=== PATIENT | male | born 1965 | race Caucasian/White ===

== ENCOUNTER 2024-03-05 11:48 | Inpatient (IN) | payer OTHER, SELFPAY ==
[2024-03-05] VITALS (9 sets, daily range): BP systolic 107–134; BP diastolic 64–87; PULSE 105–122; RESP 18–19; TEMP 36.9–38.1; O2SAT 95–99; BMI 31.3; BMI 30.9
--- NOTE | ~2024-03-05 | CT_ITS ---
EXAMINATION: CT ABDOMEN AND PELVIS WITHOUT CONTRAST CLINICAL INFORMATION: Right-sided abdominal pain, difficulty urinating. COMPARISON: None available. TECHNIQUE: Multidetector volumetric imaging was performed from the superior aspect of the liver through the pubic symphysis. Sagittal and coronal reformatted images were obtained on the technologist's workstation. This CT examination was performed using dose optimization techniques as appropriate, variously including the following: *Automated exposure control *Adjustment of mA and/or kV according to patient size (this includes techniques or standardized protocols for targeted exams where dose is matched to indication/reason for exam; i.e. extremities or head) *Use of iterative reconstruction technique DLP: 650 cc mGy-cm FINDINGS: The lack of intravenous contrast limits evaluation of the solid visceral organs including the liver, spleen, pancreas, and kidneys. LUNG BASES: Few solid pulmonary nodules bilaterally measuring up to 6 mm, for example in the right middle lobe image 24 and left upper lobe/lingula image 97, series 4. No focal consolidation or pleural effusion. Mild bibasilar subsegmental atelectasis. LIVER, GALLBLADDER, AND BILIARY TREE: The liver is normal in size, morphology and attenuation. There are multiple simple appearing cysts as well as several additional too small to characterize hypodensities scattered in the liver, the latter statistically favoring to represent cysts or hemangiomas. No evidence of calcified gallbladder calculi. No significant pericholecystic inflammatory changes. PANCREAS: Unremarkable. SPLEEN: Unremarkable. ADRENAL GLANDS: Less than 2 cm nodularities in the left adrenal gland measuring less than 10 Hounsfield units most suggestive of adenomas, for which no imaging follow-up is recommended. KIDNEYS AND URETERS: No nephrolithiasis or hydronephrosis. Simple appearing partially exophytic cortical cyst in the upper left kidney measuring 1.9 cm, for which no imaging follow-up is recommended. A few additional too small to characterize left-sided peripelvic hypodensities, favoring to represent simple cysts for which no imaging follow-up is recommended. No perinephric fat stranding. BLADDER: Mild diffuse urinary bladder wall thickening. GASTROINTESTINAL TRACT: The stomach and the small bowel are nondilated. Normal appendix. Mild colonic diverticulosis without significant pericolonic inflammatory changes. No evidence of bowel obstruction. ABDOMINAL WALL: No significant hernia is appreciated. LYMPH NODES: Scattered slightly enlarged mesenteric lymph nodes are seen more noticeable in the left upper abdomen measuring up to 1.1 cm in short axis. Mildly prominent right lower periesophageal lymph node measuring 0.9 cm. VASCULAR: Normal caliber abdominal aorta. PELVIC VISCERA: There is a 1.8 cm low-density observation in the prostate base protruding into the bladder (3:89). The prostate gland is enlarged. There is faint stranding around the bladder, prostate and seminal vesicles. OSSEOUS STRUCTURES: No acute or aggressive appearing osseous findings. Degenerative changes of the spine. CT/CT abdomen pelvis wo IV con IMPRESSION: 1. There is trace stranding around the urinary bladder, prostate and seminal vesicles with a 1.8 cm low density observation in the prostatic base; the latter could represent a prostatic abscess or cyst, and the fat stranding could be related with an urinary or prostatic infection. Recommend clinical correlation. 2. There is mild diffuse urinary bladder wall thickening which could be seen in the context of outlet obstruction in view of an enlarged prostate versus cystitis. Correlate clinically. 3. Nonspecific scattered mildly enlarged mesenteric lymph nodes of uncertain significance, these could be seen with mesenteric adenitis or enteritis. 4. Nonspecific mildly prominent right lower paraesophageal lymph node. Recommend attention on follow-up in future examinations. Incidentally noted a few up to 6 mm solid bilateral pulmonary nodules. According to the UPDATED 2017 Fleischner Society recommendations, the advised follow-up imaging for multiple solid nodules measuring up to 6-8 mm is follow-up CT at 3 to 6 months. Fleischner guidelines were followed.
--- NOTE | 2024-03-05 11:56 | ECG_ITS ---
Test Reason : DIZZINESS Blood Pressure : / mmHG Vent. Rate : 109 BPM Atrial Rate : 109 BPM P-R Int : 164 ms QRS Dur : 084 ms QT Int : 304 ms P-R-T Axes : 046 001 -02 degrees QTc Int : 409 ms Sinus tachycardia Otherwise normal ECG No previous ECGs available Referred By: Charlie Arreola Electronically Signed By:Chao Carey
--- NOTE | 2024-03-05 11:57 | ED.GENADULT ---
HPI - General Adult General Chief complaint: Abdominal Pain Stated complaint: dizzy, abd pain, near syncopal episode Time Seen by Provider: 03/05/24 12:31 Source: patient, RN notes reviewed and old records reviewed Mode of arrival: ambulatory History of Present Illness ED Provider: Micheline Cruz PA-C HPI narrative: 58-year-old male with no significant past medical history presenting to the ED complaining of fever T-max 100.8 degrees, chills, lightheadedness, & penile discharge since last night. Also reports bilateral low back pain. Admits to taking ibuprofen around 11:00AM. Denies headache, nausea, vomiting, abdominal pain, flank pain, dysuria/hematuria, lesions. Admits to not drinking enough water Related Data Allergies Allergy/AdvReac Type Severity Reaction Status Date / Time No Known Allergies Allergy Verified 03/05/24 12:00 Review of Systems Review of Systems: Constitutional: + Fever, + Chills ENT/Mouth: No Ear Pain, No Nasal Congestion, No sore throat, No Rhinorrhea, No Swallowing Difficulty Cardiovascular: No Chest Pain, No SOB Respiratory: No Cough, No Sputum, No Wheezing Gastrointestinal: No Nausea, No Vomiting, No Diarrhea, No Constipation, No Abdominal pain Genitourinary: +penile discharge, No Dysuria, No Urinary Frequency, No Hematuria, No Urinary Incontinence/retention, No Urgency, No Flank Pain Musculoskeletal: +back pain, No Myalgias, No Joint Swelling Skin: No Skin Lesions, No rash Neuro: No Weakness Yes all other systems are reviewed and are negative Constitutional: Constitutional: Reports as per [facility] Past Medical History Attestation statement: The following information was validated with the patient. Source: old records reviewed Social History Social History Advance Directives: No Advance Directives Information Provided: Yes Do you have a plan to hurt others: No Plan Physical Exam ED Vital Signs: Vital Signs - 24 hr 03/05/24 11:56 03/05/24 12:57 03/05/24 13:46 Temperature 100.6 F H 98.6 F 99.4 F Pulse Rate 122 H 108 H Respiratory Rate 18 19 Blood Pressure 107/87 122/73 Pulse Oximetry 96 95 Oxygen Delivery Method Room Air Room Air BMI result Body Mass Index 31.3 Const General: cooperative, healthy appearing and no acute distress Orientation/consciousness: patient oriented x3 Limitations: no limitations HENMT Head: Yes normal to inspection and Yes atraumatic Ears: hearing grossly normal bilaterally General nose exam: Normal external nose present Face and sinus: Yes normal facial exam Eyes General: appearance normal, both eyes and all related structures EOM: EOMs intact bilaterally Neck Neck: Yes normal visual inspection and Yes no meningeal signs Resp Effort & Inspection: normal respiratory effort and no respiratory distress Auscultation: clear to auscultation bilaterally, no crackles and no wheezes Cardio Rate: regular rate Heart sounds: S1 normal heart sound present and S2 normal heart sound present GI Inspection: Yes normal to inspection Palpation (GI): Soft to palpation, nontender, no guarding and not rigid General: Yes no CVA tenderness Back/Spine/Pelvis Back: no CVA tenderness Skin Rashes: no rashes Wounds: no wounds Neuro General: patient oriented x3, tone normal and no meningeal signs Cranial nerves: Yes CN's II-XII intact bilaterally Gait exam (Neuro): Normal gait present Extrem General: Yes normal to inspection Course Course Course Narrative: This is an RME done by PK Arreola: Additional HPI, ROS, PE not included below will be deferred to primary provider. 58 year old male no pmhx presents w/ fevers, light headedness (almost passed out [employer]) , foul smelling urine, b/l lower back pain and not peeing as much as usual . 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 Reports fever 100.8 F --> took 2 ibuprofen. Feels unwell. Denies PC, sob, headache, vision changes, weakness. Appearance: Alert.? Oriented X3.? No acute cardiopulmonary distress distress.? Head: Normocephalic, atraumatic, no step-offs or deformities Neck: Normal inspection.? Neck supple.? CVS: Pulses normal.? Respiratory: No respiratory distress.? Abdomen: Soft and nontender.? Skin: ? Normal skin color. Extremities: 5/5 strength to bilateral upper and lower extremities Neuro: Oriented X 3.? No motor deficit.? No sensory deficit. CT abdomen pelvis wo IV con IMPRESSION: 1. There is trace stranding around the urinary bladder, prostate and seminal vesicles with a 1.8 cm low density observation in the prostatic base; the latter could represent a prostatic abscess or cyst, and the fat stranding could be related with an urinary or prostatic infection. Recommend clinical correlation. 2. There is mild diffuse urinary bladder wall thickening which could be seen in the context of outlet obstruction in view of an enlarged prostate versus cystitis. Correlate clinically. 3. Nonspecific scattered mildly enlarged mesenteric lymph nodes of uncertain significance, these could be seen with mesenteric adenitis or enteritis. 4. Nonspecific mildly prominent right lower paraesophageal lymph node. Recommend attention on follow-up in future examinations. Incidentally noted a few up to 6 mm solid bilateral pulmonary nodules. According to the UPDATED 2017 Fleischner Society recommendations, the advised follow-up imaging for multiple solid nodules measuring up to 6-8 mm is follow-up CT at 3 to 6 months. Fleischner guidelines were followed. > results discussed with patient. Consulted Urology, Dr. Moralez who recommended IV antibiotics, admission to hospitalist, 8 mg of doxazosin & to avoid any catheter placement unless patient is in retention, suspected prostate abscess. -1418--leukocytosis 12.1. Total bilirubin mildly elevated 1.4. CRP 5.83. Lactic acid WNL. -UA infected >> will admit to hospitalist Medications Administered Generic Name Dose Route Start Last Admin Trade Name Freq PRN Reason Stop Dose Admin Levofloxacin 500 mg in 100 mls @ 100 mls/hr 03/05/24 13:32 03/05/24 13:46 Levaquin IV 03/05/24 14:31 100 mls/hr ONCE ONE Administration Discontinued Medications Generic Name Dose Route Start Last Admin Trade Name Freq PRN Reason Stop Dose Admin Acetaminophen 650 mg 03/05/24 12:06 03/05/24 12:33 Acetaminophen 325 Mg Tablet PO 03/05/24 12:07 650 mg ONCE ONE Administration Sodium Chloride 1,000 mls @ 999 mls/hr 03/05/24 12:00 03/05/24 13:47 Ns IV 03/05/24 13:00 Infused .Q1H1M SRAVANI Infusion Ceftriaxone Sodium 1 gm/ 50 mls @ 100 mls/hr 03/05/24 12:07 03/05/24 13:16 Sodium Chloride IV 03/05/24 12:36 Infused ONCE ONE Infusion Medical Decision Making Medical Decision Making MDM Narrative: 58-year-old male with no significant past medical history presenting to the ED complaining of fever T-max 100.8 degrees, chills, lightheadedness, & penile discharge since last night. Also reports bilateral low back pain. On exam febrile 100.6, tachycardic likely from fever, NAD/nontoxic appearing, abdomen soft/nontender. Concern for STI vs UTI vs renal stone vs pyelo. Lower suspicion for appendicitis/diverticulitis Plan: Labs, UA, lactic/blood cultures, CT AP and IV Rocephin ordered in triage. Anticipate admission Please refer to course for remaining clinical decision making, interpretation of labs/imaging results, and discussions with consultants and/or family members. Differential Diagnosis Differential Diagnoses: The differential diagnosis associated with the presentation includes As above Admission/Observation Consideration of admission/observation: Escalation of care including admission/observation considered Consult Healthcare Provider Management of the patient was discussed with: Hospitalist (Dr. Gross) and Learning Coordinator (Urology, Dr. Moralez) Lab Data MDM Lab Attestation statement: I reviewed the patient's lab results. 03/05/24 12:28 03/05/24 12:28 Labs: Lab Results 03/05/24 03/05/24 03/05/24 Range/Units 12:28 12:29 12:31 WBC 12.1 H (4.8-10.8) X10*3/uL RBC 4.45 L (4.60-5.80) X10*6/uL Hgb 14.2 (14.0-18.0) g/dl Hct 40.2 L (42.0-52.0) % MCV 90.3 (80.0-98.0) fL MCH 31.9 (27.0-33.0) pg MCHC 35.3 (31.0-36.0) g/dl RDW 11.9 (11.0-16.0) % Plt Count 110 L (160-400) X10*3/uL MPV 10.6 (9.4-12.4) fL Immature Gran % (Auto) Cancelled Neut % (Auto) Cancelled Lymph % (Auto) Cancelled [place] % (Auto) Cancelled Eos % (Auto) Cancelled Baso % (Auto) Cancelled Lymph # (Auto) Cancelled [place] # (Auto) Cancelled Eos # (Auto) Cancelled Baso # (Auto) Cancelled Abs Immat Gran (auto) Cancelled Absolute Neuts (auto) Cancelled Absolute Nucleated RBC 0.000 (0.0-0.012) X10*3/uL Nucleated RBC % (auto) 0.0 (0.0-0.2) /100WBC Neutrophils % (Manual) 89 H (45-73) % Band Neutrophils % 9 H (3-5) % Monocytes % (Manual) 2 (2-11) % Abs Neuts (Manual) 11.9 H (2.0-8.3) X10*3/uL Monocytes # (Manual) 0.2 (0.1-1.2) X10*3/uL Toxic Vacuolation PRESENT Platelet Estimate DECREASED (NORMAL) Plt Morphology Comment NORMAL RBC Morphology NORMAL Hold Blue Top SEE NOTE Sodium 137 (135-145) mmol/L Potassium 3.3 (3.3-5.1) mmol/L Chloride 106 (96-108) mmol/L Carbon Dioxide 25 (22-29) mmol/L Anion Gap 9 L (12-20) BUN 18 H (9-16) mg/dL Creatinine 0.99 (0.5-1.4) mg/dL Estim Creat Clear Calc 106.2 Estimated GFR > 60 Random Glucose 114 (60-115) mg/dL Lactic Acid 1.6 (0.5-2.0) mmol/L Calcium 8.9 (8.4-10.2) mg/dL Magnesium 1.6 (1.6-2.6) mg/dL Total Bilirubin 1.4 H (0.0-1.0) mg/dL AST 16 (5-37) U/L ALT 23 (0-40) U/L Alkaline Phosphatase 56 (39-117) U/L Total Creatine Kinase 123 (38-174) U/L Troponin I High Sens < 2.7 (<3.5-35.0) ng/L C-Reactive Protein 5.83 H (< or = 0.50) mg/dL Total Protein 6.9 (6.5-8.0) g/dL Albumin 4.1 (3.5-5.0) g/dL Lipase 31 (8-78) U/L Urine Color Urine Appearance Urine pH (5.0-9.0) Ur Specific [place] (1.005-1.025) Urine Protein (Neg-Trace) mg/dL Urine Glucose (UA) (Negative) mg/dL Urine Ketones (Negative) mg/dL Urine Blood (Negative) Urine Nitrite (Negative) Ur Leukocyte Esterase (Negative) Urine RBC (0-2) /HPF Urine WBC (0-5) /HPF Ur Squamous Epith Cells (0-2) /HPF Urine Bacteria (None Seen) Hyaline Casts (0-2) /LPF Influenza Type A (PCR) NEGATIVE (Negative) Influenza Type B (PCR) NEGATIVE (Negative) RSV RNA Qual (PCR) NEGATIVE (Negative) SARS-CoV-2 RNA (RT-PCR) NEGATIVE (Negative) 03/05/24 03/05/24 Range/Units 13:07 13:28 WBC (4.8-10.8) X10*3/uL RBC (4.60-5.80) X10*6/uL Hgb (14.0-18.0) g/dl Hct (42.0-52.0) % MCV (80.0-98.0) fL MCH (27.0-33.0) pg MCHC (31.0-36.0) g/dl RDW (11.0-16.0) % Plt Count (160-400) X10*3/uL MPV (9.4-12.4) fL Immature Gran % (Auto) Neut % (Auto) Lymph % (Auto) [place] % (Auto) Eos % (Auto) Baso % (Auto) Lymph # (Auto) [place] # (Auto) Eos # (Auto) Baso # (Auto) Abs Immat Gran (auto) Absolute Neuts (auto) Absolute Nucleated RBC (0.0-0.012) X10*3/uL Nucleated RBC % (auto) (0.0-0.2) /100WBC Neutrophils % (Manual) (45-73) % Band Neutrophils % (3-5) % Monocytes % (Manual) (2-11) % Abs Neuts (Manual) (2.0-8.3) X10*3/uL Monocytes # (Manual) (0.1-1.2) X10*3/uL Toxic Vacuolation Platelet Estimate (NORMAL) Plt Morphology Comment RBC Morphology Hold Blue Top Sodium (135-145) mmol/L Potassium (3.3-5.1) mmol/L Chloride (96-108) mmol/L Carbon Dioxide (22-29) mmol/L Anion Gap (12-20) BUN (9-16) mg/dL Creatinine (0.5-1.4) mg/dL Estim Creat Clear Calc Estimated GFR Random Glucose (60-115) mg/dL Lactic Acid 0.9 (0.5-2.0) mmol/L Calcium (8.4-10.2) mg/dL Magnesium (1.6-2.6) mg/dL Total Bilirubin (0.0-1.0) mg/dL AST (5-37) U/L ALT (0-40) U/L Alkaline Phosphatase (39-117) U/L Total Creatine Kinase (38-174) U/L Troponin I High Sens (<3.5-35.0) ng/L C-Reactive Protein (< or = 0.50) mg/dL Total Protein (6.5-8.0) g/dL Albumin (3.5-5.0) g/dL Lipase (8-78) U/L Urine Color Yellow Urine Appearance Clear Urine pH 7.0 (5.0-9.0) Ur Specific [place] 1.010 (1.005-1.025) Urine Protein Negative (Neg-Trace) mg/dL Urine Glucose (UA) Negative (Negative) mg/dL Urine Ketones Negative (Negative) mg/dL Urine Blood Trace H (Negative) Urine Nitrite Positive H (Negative) Ur Leukocyte Esterase Large (3+) H (Negative) Urine RBC 0-2 (0-2) /HPF Urine WBC 21-50 H (0-5) /HPF Ur Squamous Epith Cells 0-2 (0-2) /HPF Urine Bacteria 1+ (None Seen) Hyaline Casts 0-2 (0-2) /LPF Influenza Type A (PCR) (Negative) Influenza Type B (PCR) (Negative) RSV RNA Qual (PCR) (Negative) SARS-CoV-2 RNA (RT-PCR) (Negative) Independent Interpretation I performed an independent interpretation of an: CT Scan Radiology Impression Discussion of test interpretation with radiology: I have reviewed the radiologist's reading. Independent Historian Clinical information obtained from an independent historian. History obtained from or confirmed by: Spouse External Record Review External record reviewed: Inpatient record, Office record, Outpatient record, Prior outpatient labs, Prior outpatient radiology, Primary care record and Outside ED record Tests considered The following testing was considered but not selected: As above Prescription Management I considered prescription management with: Pain Medication and Antibiotic Critical Care Time Critical Care Time Critical Care Time: Yes Total Critical Care Time: 40 Attestation: I have personally provided critical care time exclusive of time spent on separately billable procedures. Time includes review of lab data, radiology results, discussion with consultants, and monitoring for potential decompensation. Intervention performed as documented. Discharge Plan Discharge Clinical Impression: Prostate abscess Patient Disposition: Admitted As Inpatient Print Language: Ethiopian
[2024-03-05] MEDS: Acetaminophen 325 MG TABLET 650 MG PO (12:33)
[2024-03-05] MEDS: 0.9 % Sodium Chloride 1,000 ML 999 ML IV ×2 (12:34→14:45)
[2024-03-05 12:41] LABS: Hematocrit 40.2 % (42.0-52.0); Hemoglobin 14.2 g/dl (14.0-18.0); Mean Corpuscular HGB Conc 35.3 g/dl (31.0-36.0); Mean Corpuscular Hemoglobin 31.9 pg (27.0-33.0); Mean Corpuscular Volume 90.3 fL (80.0-98.0); Mean Platelet Volume 10.6 fL (9.4-12.4); Platelet Count 110 X10*3/uL (160-400); Red Blood Count 4.45 X10*6/uL (4.60-5.80); Red Cell Distribution Width 11.9 % (11.0-16.0); White Blood Count 12.1 X10*3/uL (4.8-10.8)
[2024-03-05] MEDS: cefTRIAXone sodium 1 GM in 0.9 % Sodium Chloride 50 ML IV (12:44)
[2024-03-05 12:50] LABS: Lactic Acid 1.6 mmol/L (0.5-2.0)
[2024-03-05 12:54] LABS: Alanine Aminotransferase 23 U/L (0-40); Albumin Level 4.1 g/dL (3.5-5.0); Alkaline Phosphatase 56 U/L (39-117); Anion Gap 9 (12-20); Aspartate Amino Transferase 16 U/L (5-37); Bilirubin Total 1.4 mg/dL (0.0-1.0); Blood Urea Nitrogen 18 mg/dL (9-16); Calcium 8.9 mg/dL (8.4-10.2); Carbon Dioxide 25 mmol/L (22-29); Chloride 106 mmol/L (96-108); Creatinine Clr Calc Pharmacy 106.2; Estimated Glomerular Filt Rate > 60; Glucose Random 114 mg/dL (60-115); Lipase 31 U/L (8-78); Magnesium 1.6 mg/dL (1.6-2.6); Potassium 3.3 mmol/L (3.3-5.1); Sodium 137 mmol/L (135-145); Total Protein 6.9 g/dL (6.5-8.0)
[2024-03-05 13:05] LABS: Band Neutrophils Percent 9 % (3-5); Monocytes Absolute Manual 0.2 X10*3/uL (0.1-1.2); Monocytes Percent Manual 2 % (2-11); Neutrophils Absolute Manual 11.9 X10*3/uL (2.0-8.3); Neutrophils Percent Manual 89 % (45-73)
[2024-03-05 13:06] LABS: Platelet Estimate DECREASED (NORMAL); Platelet Morphology Comment NORMAL; RBC Morphology NORMAL; Toxic Vacuolation PRESENT; Troponin-I High Sensitivity < 2.7 ng/L (<3.5-35.0)
[2024-03-05 13:16] LABS: Influenza A PCR NEGATIVE (Negative); Influenza B PCR NEGATIVE (Negative); Resp Syncy Virus RNA Qual PCR NEGATIVE (Negative); SARS COV2 PCR INHOUSE NEGATIVE (Negative)
[2024-03-05 13:27] LABS: Lactic Acid 0.9 mmol/L (0.5-2.0)
[2024-03-05 13:41] LABS: Appearance Urine Clear; Color Urine Yellow; Glucose Urine UA Negative (Negative); Leukocyte Esterase Urine Large (3+) (Negative); Nitrite Urine Positive (Negative); UMIC TRIGGER UACC YES; Urine Blood Trace (Negative); Urine Ketones Negative (Negative); Urine Protein Negative (Neg-Trace)
[2024-03-05 13:43] LABS: Bacteria Urine 1+ (None Seen); Hyaline Casts Urine 0-2 /LPF (0-2); RBC Urine 0-2 /HPF (0-2); Squamous Epithelial Cell Urine 0-2 /HPF (0-2); UACC Culture Trigger YES; WBC Urine 21-50 /HPF (0-5)
[2024-03-05] MEDS: levoFLOXacin/D5W 500 MG/100 ML PIGGYBACK 100 MG IV (13:46)
[2024-03-05 14:01] LABS: C Reactive Protein 5.83 mg/dL (< or = 0.50)
--- NOTE | 2024-03-05 14:26 | PM.IMHP ---
History of Present Illness Date of Service: 03/05/24 Attending physician on admission: Richie Stringer Chief Complaint: Lightheadedness, weak urinary stream, fevers 58-year-old male without any significant past medical history presented to the ED earlier today for evaluation of lightheadedness, increased urinary frequency with weak urinary stream, and fevers up to 100.8 with associated chills that started last night. He has also had decreased appetite as well as a thick white penile discharge noted last night. Denies any abdominal pain, nausea, vomiting, dysuria, hematuria, diarrhea, cough, shortness of breath, chest pain. No syncope. is present in room during time of exam but both report strict monogamy. No history of STI. Since arrival, has been febrile to 100.6, tachycardic to 122, vital signs otherwise stable. He has a leukocytosis of 12.1 with 9% bandemia. Renal function and electrolyte levels normal. Lactic acid initially 1.6 with repeat 0.9. Total bilirubin 1.4, hepatic function otherwise within normal limits. CRP 5.83. ESR 6. Urinalysis significant for 3+ leukocytes, positive nitrites, trace blood, positive urinary sediment, 1+ bacteria. Gonorrhea and chlamydia PCR both pending. CT abdomen/pelvis shows trace stranding around the urinary bladder, prostate, and seminal vesicles with a 1.8 cm low-density observed in the prostatic base possibly representing prostatic abscess or cyst. There is also diffuse urinary bladder wall thickening and scattered mildly enlarged mesenteric lymph nodes. In the ED, has been given IV ceftriaxone, Levaquin, Tylenol, and 2 L IV NS. Review of Systems Review of Systems: Yes all other systems are reviewed and are negative [facility] Medical History No pertinent past medical history Social History Advance Directives: No Advance Directives Information Provided: Yes Do you have a plan to hurt others: No Plan Meds Allergies Allergy/AdvReac Type Severity Reaction Status Date / Time No Known Allergies Allergy Verified 03/05/24 12:00 Active Medications: Current Medications Levofloxacin (Levaquin) 500 mg in 100 mls @ 100 mls/hr IV ONCE ONE Stop: 03/05/24 14:31 Last Admin: 03/05/24 13:46 Dose: 100 mls/hr Sodium Chloride (Ns) 1,000 mls @ 999 mls/hr IV .Q1H1M SRAVANI Stop: 03/05/24 15:30 Home Medications ?Medication ?Instructions ?Recorded ?Confirmed ?Last Taken ?Type ascorbic acid (vitamin C) 500 mg 500 mg PO DAILY 03/05/24 03/05/24 Unknown History tablet (Vitamin C) biotin 5 mg tablet 5 mg PO DAILY 03/05/24 03/05/24 Unknown History omega 1-hde-dvp-fish oil 1,000 mg 1 cap PO DAILY 03/05/24 03/05/24 Unknown History (120 mg-180 mg) capsule (Fish Oil) sildenafil 100 mg tablet 100 mg PO DAILY PRN intercourse 03/05/24 03/05/24 Unknown History Physical Exam Vital Signs and Narrative: Vital Signs: Last Vital Signs Temp 99.4 F 03/05/24 13:46 Pulse 108 H 03/05/24 12:57 Resp 19 03/05/24 12:57 BP 122/73 03/05/24 12:57 Pulse Ox 95 03/05/24 12:57 O2 Del Method Room Air 03/05/24 12:57 BMI result Body Mass Index 31.3 Constitutional - Awake and Alert, No apparent distress Eyes - PERRLA, EOMI Cardiovascular - S1S2, RRR, No edema Respiratory - Normal lung expansion, Normal respiratory effort, No respiratory distress, CTA bilaterally Gastrointestinal - NT / ND; +BS; No rebound or guarding - No CVA tenderness Extremities - no calf tenderness bilaterally, no swelling Skin - Warm/Dry Neurological - Alert & oriented x3 Psychological - Appropriate affect Results Labs 03/05/24 12:28 03/05/24 12:28 Labs: Laboratory Results - last 24 hr 03/05/24 03/05/24 03/05/24 12:28 12:29 12:31 MCV 90.3 MCH 31.9 MCHC 35.3 RDW 11.9 Plt Count 110 L MPV 10.6 Immature Gran % (Auto) Cancelled Neut % (Auto) Cancelled Lymph % (Auto) Cancelled [place] % (Auto) Cancelled Eos % (Auto) Cancelled Baso % (Auto) Cancelled Lymph # (Auto) Cancelled [place] # (Auto) Cancelled Eos # (Auto) Cancelled Baso # (Auto) Cancelled Abs Immat Gran (auto) Cancelled Absolute Neuts (auto) Cancelled Absolute Nucleated RBC 0.000 Nucleated RBC % (auto) 0.0 Neutrophils % (Manual) 89 H Band Neutrophils % 9 H Monocytes % (Manual) 2 Abs Neuts (Manual) 11.9 H Monocytes # (Manual) 0.2 Toxic Vacuolation PRESENT Platelet Estimate DECREASED Plt Morphology Comment NORMAL RBC Morphology NORMAL Hold Blue Top SEE NOTE Anion Gap 9 L Estim Creat Clear Calc 106.2 Estimated GFR > 60 Random Glucose 114 Lactic Acid 1.6 Calcium 8.9 Magnesium 1.6 Total Bilirubin 1.4 H AST 16 ALT 23 Alkaline Phosphatase 56 Total Creatine Kinase 123 Troponin I High Sens < 2.7 C-Reactive Protein 5.83 H Total Protein 6.9 Albumin 4.1 Lipase 31 Urine Color Urine Appearance Urine pH Ur Specific [place] Urine Protein Urine Glucose (UA) Urine Ketones Urine Blood Urine Nitrite Ur Leukocyte Esterase Urine RBC Urine WBC Ur Squamous Epith Cells Urine Bacteria Hyaline Casts Influenza Type A (PCR) NEGATIVE Influenza Type B (PCR) NEGATIVE RSV RNA Qual (PCR) NEGATIVE SARS-CoV-2 RNA (RT-PCR) NEGATIVE 03/05/24 03/05/24 13:07 13:28 MCV MCH MCHC RDW Plt Count MPV Immature Gran % (Auto) Neut % (Auto) Lymph % (Auto) [place] % (Auto) Eos % (Auto) Baso % (Auto) Lymph # (Auto) [place] # (Auto) Eos # (Auto) Baso # (Auto) Abs Immat Gran (auto) Absolute Neuts (auto) Absolute Nucleated RBC Nucleated RBC % (auto) Neutrophils % (Manual) Band Neutrophils % Monocytes % (Manual) Abs Neuts (Manual) Monocytes # (Manual) Toxic Vacuolation Platelet Estimate Plt Morphology Comment RBC Morphology Hold Blue Top Anion Gap Estim Creat Clear Calc Estimated GFR Random Glucose Lactic Acid 0.9 Calcium Magnesium Total Bilirubin AST ALT Alkaline Phosphatase Total Creatine Kinase Troponin I High Sens C-Reactive Protein Total Protein Albumin Lipase Urine Color Yellow Urine Appearance Clear Urine pH 7.0 Ur Specific [place] 1.010 Urine Protein Negative Urine Glucose (UA) Negative Urine Ketones Negative Urine Blood Trace H Urine Nitrite Positive H Ur Leukocyte Esterase Large (3+) H Urine RBC 0-2 Urine WBC 21-50 H Ur Squamous Epith Cells 0-2 Urine Bacteria 1+ Hyaline Casts 0-2 Influenza Type A (PCR) Influenza Type B (PCR) RSV RNA Qual (PCR) SARS-CoV-2 RNA (RT-PCR) Imaging Radiologist's Impressions: Impressions Abdomen/Pelvis CT 03/05/24 12:20 IMPRESSION: 1. There is trace stranding around the urinary bladder, prostate and seminal vesicles with a 1.8 cm low density observation in the prostatic base; the latter could represent a prostatic abscess or cyst, and the fat stranding could be related with an urinary or prostatic infection. Recommend clinical correlation. 2. There is mild diffuse urinary bladder wall thickening which could be seen in the context of outlet obstruction in view of an enlarged prostate versus cystitis. Correlate clinically. 3. Nonspecific scattered mildly enlarged mesenteric lymph nodes of uncertain significance, these could be seen with mesenteric adenitis or enteritis. 4. Nonspecific mildly prominent right lower paraesophageal lymph node. Recommend attention on follow-up in future examinations. Incidentally noted a few up to 6 mm solid bilateral pulmonary nodules. According to the UPDATED 2017 Fleischner Society recommendations, the advised follow-up imaging for multiple solid nodules measuring up to 6-8 mm is follow-up CT at 3 to 6 months. Fleischner guidelines were followed. Assessment and Plan (1) Prostatitis: Status: Acute (2) Prostate abscess: Status: Acute Plan 58-year-old male without any significant past medical history admitted for prostatitis and prostatic abscess #acute prostatitis and prostatic abscess with sepsis -leukocytosis 12.1, tachycardia. New lactic acidosis or end-organ damage. No severe sepsis -UA with 3+ leukocytes, positive nitrites, trace blood, positive urinary sediment, 1+ bacteria. Gonorrhea and chlamydia PCR pending -CT abdomen/pelvis shows trace stranding around the urinary bladder, prostate, and seminal vesicles with a 1.8 cm low-density observed in the prostatic base possibly representing prostatic abscess or cyst. There is also diffuse urinary bladder wall thickening and scattered mildly enlarged mesenteric lymph nodes. -IV ceftriaxone per Urology (initiated 03/05). We will also empirically cover with docycycline x 7 days (initiated 03/05) -urology consult -follow cbc/cultures #ACute thrombocytopenia -likely in setting of infection but no severe sepsis # acute hyperbilirubinemia -likely in setting of infection, but no severe sepsis dvt prophylaxis- scps, early ambulation full code Patient with acute prostatitis and prostatic abscess with sepsis will require inpatient hospital stay at least 2 midnights for management with IV antibiotics, expert consultation, and close monitoring of hemodynamics to monitor for and prevent decompensation Quality Stroke Does the patient have a stroke diagnosis?: No VTE Prior VTE?: No VTE Risk Level:: Medical - moderate - high VTE Device Contraindication: Treatment Not Indicated VTE Drug Contraindication: N/A - Med Ordered
--- NOTE | 2024-03-05 14:34 | PHA.MEDREC ---
Pharmacy Consult ? Medication Reconciliation Pharmacy has completed the medication reconciliation. spoke with patient to confirm medications.
[2024-03-05 14:56] LABS: Erythrocyte Sedimentation Rate 6 MM/HR (0-15)
[2024-03-05 15:30] LABS: CT PCR NOT DETECTED (Not Detect.); NG PCR NOT DETECTED (Not Detect.)
[2024-03-05] MEDS: Doxazosin Mesylate 2 MG TABLET 8 MG PO (15:56)
[2024-03-05] MEDS: 0.9 % Sodium Chloride Flush 3 ML SYRINGE IVFLUSH (17:15)
[2024-03-05] MEDS: Doxycycline Hyclate 100 MG in 0.9 % Sodium Chloride 250 ML 166.67 MG IV (17:16)
--- NOTE | 2024-03-05 17:38 | MHC.EDTECH ---
Pt changed over and placed in hospital bed. Vital signs taken and tray ordered and pt updated on plan of care.
--- NOTE | 2024-03-05 17:49 | PC.NURSE ---
PT ARRIVES FROM ED , IN NAD. DENIES ANY PAIN, PASSING URINE AT THIS TIME. AFEBRILE, REMAINS SLIGHTLY TACHY LOW 100S. DOXY GTT RUNNING WITH NO ISSUE. HE IS A&OX4, AMBULATES INDEPENDENTLY, STEADILY. WCTM.
[2024-03-05] MEDS: ondansetron HCL 4 MG/2 ML VIAL IVPUSH (18:31)
[2024-03-06 03:18] VITALS: BP 109/64; PULSE 95; RESP 18; TEMP 37; O2SAT 92
[2024-03-06] MEDS: Doxycycline Hyclate 100 MG in 0.9 % Sodium Chloride 250 ML 166.67 MG IV (04:31)
[2024-03-06 06:14] LABS: MANUAL DIFF FLAG NO
[2024-03-06 06:23] LABS: Basophils Percent Auto 0.2 % (0-2); Eosinophils Percent Auto 0.1 % (0-4); Hematocrit 36.3 % (42.0-52.0); Hemoglobin 12.7 g/dl (14.0-18.0); Imm Gran Abs Auto 0.16 X10*3/uL (0.00-0.03); Imm Gran Pct Auto 1.2 % (0.0-0.4); Lymphocytes Absolute Auto 0.7 X10*3/uL (1.2-4.9); Lymphocytes Percent Auto 5.5 % (20-40); Mean Corpuscular Hemoglobin 32.1 pg (27.0-33.0); Mean Corpuscular Volume 91.7 fL (80.0-98.0); Mean Platelet Volume 11.3 fL (9.4-12.4); Monocytes Absolute Auto 0.9 X10*3/uL (0.1-1.2); Monocytes Percent Auto 6.3 % (2-11); Neutrophils Absolute Auto 11.6 x10*3/uL (2.0-8.3); Neutrophils Percent Auto 86.7 % (45-73); Red Blood Count 3.96 X10*6/uL (4.60-5.80); Red Cell Distribution Width 12.1 % (11.0-16.0); White Blood Count 13.4 X10*3/uL (4.8-10.8)
[2024-03-06 06:24] LABS: Platelet Count 81 X10*3/uL (160-400)
[2024-03-06 06:33] LABS: Anion Gap 11 (12-20); Blood Urea Nitrogen 11 mg/dL (9-16); Calcium 8.5 mg/dL (8.4-10.2); Carbon Dioxide 23 mmol/L (22-29); Chloride 108 mmol/L (96-108); Creatinine Clr Calc Pharmacy 124.5; Estimated Glomerular Filt Rate > 60; Glucose Random 162 mg/dL (60-115); Potassium 3.8 mmol/L (3.3-5.1); Sodium 138 mmol/L (135-145)
[2024-03-06 07:31] VITALS: BP 114/68; PULSE 91; RESP 18; TEMP 36.4; O2SAT 94
[2024-03-06] MEDS: 0.9 % Sodium Chloride Flush 3 ML SYRINGE IVFLUSH ×3 (07:51→23:50)
[2024-03-06] MEDS: Doxazosin Mesylate 2 MG TABLET 8 MG PO (07:52)
[2024-03-06] MEDS: Ascorbic Acid 500 MG TABLET PO (07:52)
--- NOTE | 2024-03-06 08:30 | P.PNIM_ITS ---
Subjective Subjective Date of Service: 03/06/24 Interval History: Being followed for fevers lightheadedness and penile discharge admitted with a diagnosis of acute prostatitis and prostatic abscess with sepsis. Patient feeling better this morning complaining of headache, no fevers, no nausea, no vomiting, no urinary symptoms of hematuria or dysuria. Review of Systems All other system reviewed and are negative Physical Exam 2 Vital Signs: Vital Signs: Last Vital Signs Temp 97.5 F 03/06/24 07:31 Pulse 91 03/06/24 07:31 Resp 18 03/06/24 07:31 BP 114/68 03/06/24 07:31 Pulse Ox 94 03/06/24 07:31 O2 Del Method Room Air 03/06/24 07:31 BMI result Body Mass Index 30.9 Const: Other: General patient resting comfortably in no acute distress. Neck is supple no JVD. CVS regular rate rhythm, Respiratory lungs clear to auscultation, no respiratory distress, no wheeze, no rhonchi. Gastrointestinal abdomen soft, non tender, bowel sounds audible, no guarding , no rigidity. Extremities no edema. Neuro non focal Skin no rash Psych appropriate affect Objective Data Active Medications Acetaminophen (Acetaminophen 325 Mg Tablet) 650 mg PO Q6H PRN PRN Reason: Pain, Mild (Pain Scale 1-3), fever or headache Ascorbic Acid (Ascorbic Acid 500 Mg Tablet) 500 mg PO DAILY [facility] Last Admin: 03/06/24 07:52 Dose: 500 mg Documented By: KAMILAH Calcium Carbonate (Calcium Carbonate 750 Mg Tab.Chew) 750 mg PO Q4H PRN PRN Reason: Heartburn Doxazosin Mesylate (Doxazosin Mesylate 2 Mg Tablet) 8 mg PO DAILY [facility]; Protocol Last Admin: 03/06/24 07:52 Dose: 8 mg Documented By: KAMILAH Doxycycline Hyclate 100 mg/ (Sodium Chloride) 250 mls @ 166.67 mls/hr IV Q12H [facility] Last Infusion: 03/06/24 06:13 Dose: Infused Documented By: JESENIA Ceftriaxone Sodium 1 gm/ (Sodium Chloride) 50 mls @ 100 mls/hr IV Q24H [facility] Magnesium Hydroxide (Milk Of Magnesia 30 Ml Oral.Susp) 30 ml PO DAILY PRN PRN Reason: Constipation Melatonin (Melatonin 3 Mg Tablet) 6 mg PO BEDTIME PRN PRN Reason: Insomnia Ondansetron HCl (Ondansetron Hcl 4 Mg/2 Ml Vial) 4 mg IVPUSH Q8H PRN PRN Reason: Nausea and Vomiting Last Admin: 03/05/24 18:31 Dose: 4 mg Documented By: MEERA Sodium Chloride (0.9 % Sodium Chloride Flush 3 Ml Syringe) 3 ml IVFLUSH QSHIFT [facility] Last Admin: 03/06/24 07:51 Dose: 3 ml Documented By: KAMILAH Labs 03/06/24 05:50 03/06/24 05:50 Labs: Laboratory Results - last 24 hr 03/05/24 03/05/24 03/05/24 12:28 12:29 12:31 MCV 90.3 MCH 31.9 MCHC 35.3 RDW 11.9 Plt Count 110 L MPV 10.6 Immature Gran % (Auto) Cancelled Neut % (Auto) Cancelled Lymph % (Auto) Cancelled [place] % (Auto) Cancelled Eos % (Auto) Cancelled Baso % (Auto) Cancelled Lymph # (Auto) Cancelled [place] # (Auto) Cancelled Eos # (Auto) Cancelled Baso # (Auto) Cancelled Abs Immat Gran (auto) Cancelled Absolute Neuts (auto) Cancelled Absolute Nucleated RBC 0.000 Nucleated RBC % (auto) 0.0 Neutrophils % (Manual) 89 H Band Neutrophils % 9 H Monocytes % (Manual) 2 Abs Neuts (Manual) 11.9 H Monocytes # (Manual) 0.2 Toxic Vacuolation PRESENT Platelet Estimate DECREASED Plt Morphology Comment NORMAL RBC Morphology NORMAL ESR 6 Hold Blue Top SEE NOTE Anion Gap 9 L Estim Creat Clear Calc 106.2 Estimated GFR > 60 Random Glucose 114 Lactic Acid 1.6 Calcium 8.9 Magnesium 1.6 Total Bilirubin 1.4 H AST 16 ALT 23 Alkaline Phosphatase 56 Total Creatine Kinase 123 Troponin I High Sens < 2.7 C-Reactive Protein 5.83 H Total Protein 6.9 Albumin 4.1 Lipase 31 Urine Color Urine Appearance Urine pH Ur Specific [place] Urine Protein Urine Glucose (UA) Urine Ketones Urine Blood Urine Nitrite Ur Leukocyte Esterase Urine RBC Urine WBC Ur Squamous Epith Cells Urine Bacteria Hyaline Casts Chlam trachomat DNA PCR Influenza Type A (PCR) NEGATIVE Influenza Type B (PCR) NEGATIVE N.gonorrhoeae DNA (PCR) RSV RNA Qual (PCR) NEGATIVE SARS-CoV-2 RNA (RT-PCR) NEGATIVE 03/05/24 03/05/24 03/06/24 13:07 13:28 05:50 MCV 91.7 MCH 32.1 MCHC 35.0 RDW 12.1 Plt Count 81 L D MPV 11.3 Immature Gran % (Auto) 1.2 H Neut % (Auto) 86.7 H Lymph % (Auto) 5.5 L [place] % (Auto) 6.3 Eos % (Auto) 0.1 Baso % (Auto) 0.2 Lymph # (Auto) 0.7 L [place] # (Auto) 0.9 Eos # (Auto) 0.0 Baso # (Auto) 0.0 Abs Immat Gran (auto) 0.16 H Absolute Neuts (auto) 11.6 H Absolute Nucleated RBC 0.000 Nucleated RBC % (auto) 0.0 Neutrophils % (Manual) Band Neutrophils % Monocytes % (Manual) Abs Neuts (Manual) Monocytes # (Manual) Toxic Vacuolation Platelet Estimate Plt Morphology Comment RBC Morphology ESR Hold Blue Top Anion Gap 11 L Estim Creat Clear Calc 124.5 Estimated GFR > 60 Random Glucose 162 H Lactic Acid 0.9 Calcium 8.5 Magnesium Total Bilirubin AST ALT Alkaline Phosphatase Total Creatine Kinase Troponin I High Sens C-Reactive Protein Total Protein Albumin Lipase Urine Color Yellow Urine Appearance Clear Urine pH 7.0 Ur Specific [place] 1.010 Urine Protein Negative Urine Glucose (UA) Negative Urine Ketones Negative Urine Blood Trace H Urine Nitrite Positive H Ur Leukocyte Esterase Large (3+) H Urine RBC 0-2 Urine WBC 21-50 H Ur Squamous Epith Cells 0-2 Urine Bacteria 1+ Hyaline Casts 0-2 Chlam trachomat DNA PCR NOT DETECTED Influenza Type A (PCR) Influenza Type B (PCR) N.gonorrhoeae DNA (PCR) NOT DETECTED RSV RNA Qual (PCR) SARS-CoV-2 RNA (RT-PCR) Microbiology Microbiology Results: Microbiology 03/05/24 12:29 Blood Culture - Preliminary Blood - Venous Prelim: GNR Gram Stain only 03/05/24 12:44 Blood Culture - Final Blood - Venous 03/05/24 12:14 Blood Culture - Final Blood - Venous Assessment and Plan (1) Prostatitis: Status: Acute (2) Prostate abscess: Status: Acute Plan 58-year-old male without any significant past medical history admitted for prostatitis and prostatic abscess #acute prostatitis and prostatic abscess with sepsis -clinically feeling better, WBC bumped from 12.1-13.4, no fevers, no urinary symptoms, urine and 1/2 blood culture positive for Gram-negative rods -tachycardia improving, normal lactic acid, no end-organ damage, no severe sepsis. -UA with 3+ leukocytes, positive nitrites, trace blood, positive urinary sediment, 1+ bacteria. Gonorrhea and chlamydia PCR negative -CT abdomen/pelvis shows trace stranding around the urinary bladder, prostate, and seminal vesicles with a 1.8 cm low-density observed in the prostatic base possibly representing prostatic abscess or cyst. There is also diffuse urinary bladder wall thickening and scattered mildly enlarged mesenteric lymph nodes. -continue IV ceftriaxone per Urology (initiated 03/05). DC IV doxy -urology consult -follow cbc/cultures #Acute thrombocytopenia -noted to have slight drop in platelet from 110,000 to 81,000 this morning, likely due to chronic alcohol use, due to doxycycline, but not due to severe sepsis, since fever resolved, tachycardia improved, will monitor CBC # acute hyperbilirubinemia -likely chronic with alcohol use disorder or due to infection , but no severe sepsis dvt prophylaxis- scps, early ambulation full code Patient with acute prostatitis and prostatic abscess with sepsis will require inpatient hospitalization for management with IV antibiotics, expert consultation, and close monitoring of hemodynamics to monitor for and prevent decompensation Quality Stroke Does the patient have a stroke diagnosis?: No VTE Prior VTE?: No VTE Risk Level:: Medical - moderate - high VTE Device Contraindication: Treatment Not Indicated VTE Drug Contraindication: N/A - Med Ordered
[2024-03-06] MEDS: Acetaminophen 325 MG TABLET 650 MG PO (10:18)
[2024-03-06] MEDS: cefTRIAXone sodium 1 GM in 0.9 % Sodium Chloride 50 ML IV (10:59)
--- NOTE | 2024-03-06 12:09 | MHC.CM.PN ---
PATIENT LIVES WITH FAMILY AND IS FULLY INDEPENDENT WITH ADLS. NO DME OR SERVICES IN THE HOME. HE IS AGREEABLE TO ASSIGNING HCP AGENT. COPY TO BE PLACED IN CHART AND UPLOADED INTO [facility] [employer]. HE CHOOSES HIS , [facility]HA. CASE MANAGEMENT FOLLOWING FOR ANY DC NEEDS.
[2024-03-06 15:26] VITALS: BP 104/57; PULSE 86; RESP 18; TEMP 36.1; O2SAT 94
[2024-03-06 19:41] VITALS: BP 101/67; PULSE 88; RESP 18; TEMP 36.8; O2SAT 94
[2024-03-07 04:00] VITALS: BP 125/76; PULSE 83; RESP 18; TEMP 37.1; O2SAT 95
[2024-03-07 07:13] LABS: Hematocrit 37.7 % (42.0-52.0); Hemoglobin 12.8 g/dl (14.0-18.0); Mean Corpuscular Hemoglobin 31.4 pg (27.0-33.0); Mean Corpuscular Volume 92.6 fL (80.0-98.0); Red Blood Count 4.07 X10*6/uL (4.60-5.80); Red Cell Distribution Width 12.3 % (11.0-16.0); White Blood Count 8.6 X10*3/uL (4.8-10.8)
[2024-03-07 07:19] LABS: Anion Gap 10 (12-20); Blood Urea Nitrogen 10 mg/dL (9-16); Calcium 8.9 mg/dL (8.4-10.2); Carbon Dioxide 24 mmol/L (22-29); Chloride 109 mmol/L (96-108); Creatinine Clr Calc Pharmacy 129.1; Estimated Glomerular Filt Rate > 60; Glucose Random 127 mg/dL (60-115); Potassium 4.1 mmol/L (3.3-5.1); Sodium 139 mmol/L (135-145)
[2024-03-07 07:24] VITALS: BP 129/80; PULSE 78; RESP 16; TEMP 36.1; O2SAT 96
[2024-03-07 07:44] LABS: Platelet Count 76 X10*3/uL (160-400)
[2024-03-07 07:45] LABS: Mean Platelet Volume 11.5 fL (9.4-12.4)
--- NOTE | 2024-03-07 08:33 | PM.UROCN ---
History of Present Illness Consult details Consult date: 03/07/24 Narrative: 58-year-old male presented to ED on 03/05/24 complaining of fever T-max 100.8 degrees, chills, lightheadedness, & penile discharge x one day, and reported bilateral low back pain. He stated he had one previous episode of prostatitis, has not seen a urologist in the past. Decreased force to urinary stream over the last few years, denies prior STD's. The patient is clinically improved with IV abx. CTAP - Kidneys- negative for hydronephrosis or renal calculi; 1.8 cm low density (differential includes cyst vs abscess) in the prostatic base; enlarged prostate, mild bladder wall thickening. Review of Systems Review of Systems: 10 point ROS negative other than HPI PMFSH Past Medical History Medical History No pertinent past medical history Social History Social History Household Members: Spouse Housing: House Do you presently have visiting nurse or other home services: No Patient Tobacco Use Status: Never used Tobacco service: No Meds Allergies Allergy/AdvReac Type Severity Reaction Status Date / Time No Known Allergies Allergy Verified 03/05/24 12:00 Active Medications: Current Medications Acetaminophen (Acetaminophen 325 Mg Tablet) 650 mg PO Q6H PRN PRN Reason: Pain, Mild (Pain Scale 1-3), fever or headache Last Admin: 03/06/24 10:18 Dose: 650 mg Ascorbic Acid (Ascorbic Acid 500 Mg Tablet) 500 mg PO DAILY [facility] Last Admin: 03/06/24 07:52 Dose: 500 mg Calcium Carbonate (Calcium Carbonate 750 Mg Tab.Chew) 750 mg PO Q4H PRN PRN Reason: Heartburn Doxazosin Mesylate (Doxazosin Mesylate 2 Mg Tablet) 8 mg PO DAILY [facility]; Protocol Last Admin: 03/06/24 07:52 Dose: 8 mg Ceftriaxone Sodium 2 gm/ (Sodium Chloride) 50 mls @ 100 mls/hr IV Q24H [facility] Magnesium Hydroxide (Milk Of Magnesia 30 Ml Oral.Susp) 30 ml PO DAILY PRN PRN Reason: Constipation Melatonin (Melatonin 3 Mg Tablet) 6 mg PO BEDTIME PRN PRN Reason: Insomnia Ondansetron HCl (Ondansetron Hcl 4 Mg/2 Ml Vial) 4 mg IVPUSH Q8H PRN PRN Reason: Nausea and Vomiting Last Admin: 03/05/24 18:31 Dose: 4 mg Sodium Chloride (0.9 % Sodium Chloride Flush 3 Ml Syringe) 3 ml IVFLUSH QSHIFT [facility] Last Admin: 03/06/24 23:50 Dose: 3 ml Home Medications ?Medication ?Instructions ?Recorded ?Confirmed ?Last Taken ?Type ascorbic acid (vitamin C) 500 mg 500 mg PO DAILY 03/05/24 03/05/24 Unknown History tablet (Vitamin C) biotin 5 mg tablet 5 mg PO DAILY 03/05/24 03/05/24 Unknown History omega 4-kce-ngs-fish oil 1,000 mg 1 cap PO DAILY 03/05/24 03/05/24 Unknown History (120 mg-180 mg) capsule (Fish Oil) sildenafil 100 mg tablet 100 mg PO DAILY PRN intercourse 03/05/24 03/05/24 Unknown History Physical Exam Vital Signs: Vital Signs: Last Vital Signs Temp 96.9 F 03/07/24 07:24 Pulse 78 03/07/24 07:24 Resp 16 03/07/24 07:24 BP 129/80 03/07/24 07:24 Pulse Ox 96 03/07/24 07:24 O2 Del Method Room Air 03/07/24 07:24 BMI result Body Mass Index 30.9 Const: General: healthy appearing, no acute distress and well developed Orientation/consciousness: patient oriented x3 HEENT: Head: Yes normocephalic and Yes atraumatic Eyes: Conjunctivae: conjunctivae normal Neck: Neck: Yes normal visual inspection Chest: Chest palpation & inspection: normal inspection of the chest Resp: Effort & Inspection: normal respiratory effort Cardio: Rate: regular rate GI: Inspection: Yes normal to inspection Palpation (GI): Soft to palpation Skin: General skin exam: no rashes or lesions noted Neuro: General: patient oriented x3 Extrem: General: No pedal edema Psych: Appearance: grossly normal Affect: normal affect Results Labs 03/07/24 06:03 03/07/24 06:03 Labs: Abnormal lab results 03/07/24 Range/Units 06:03 RBC 4.07 L (4.60-5.80) X10*6/uL Hgb 12.8 L (14.0-18.0) g/dl Hct 37.7 L (42.0-52.0) % Plt Count 76 L (160-400) X10*3/uL Chloride 109 H (96-108) mmol/L Anion Gap 10 L (12-20) Random Glucose 127 H (60-115) mg/dL Short CBC 03/07/24 Range/Units 06:03 WBC 8.6 (4.8-10.8) X10*3/uL Hgb 12.8 L (14.0-18.0) g/dl Hct 37.7 L (42.0-52.0) % Plt Count 76 L (160-400) X10*3/uL BMP 03/07/24 06:03 Sodium 139 Potassium 4.1 Chloride 109 H Carbon Dioxide 24 BUN 10 Creatinine 0.81 Calcium 8.9 Urine 03/05/24 Range/Units 13:28 Urine Color Yellow Urine Appearance Clear Urine pH 7.0 (5.0-9.0) Ur Specific [place] 1.010 (1.005-1.025) Urine Protein Negative (Neg-Trace) mg/dL Urine Glucose (UA) Negative (Negative) mg/dL All other labs normal. Imaging Additional studies: Date of Service: 03/05/24 CT ABDOMEN AND PELVIS WITHOUT CONTRAST CLINICAL INFORMATION: Right-sided abdominal pain, difficulty urinating. COMPARISON: None available. TECHNIQUE: Multidetector volumetric imaging was performed from the superior aspect of the liver through the pubic symphysis. Sagittal and coronal reformatted images were obtained on the technologist's workstation. This CT examination was performed using dose optimization techniques as appropriate, variously including the following: *Automated exposure control *Adjustment of mA and/or kV according to patient size (this includes techniques or standardized protocols for targeted exams where dose is matched to indication/reason for exam; i.e. extremities or head) *Use of iterative reconstruction technique DLP: 650 cc mGy-cm FINDINGS: The lack of intravenous contrast limits evaluation of the solid visceral organs including the liver, spleen, pancreas, and kidneys. LUNG BASES: Few solid pulmonary nodules bilaterally measuring up to 6 mm, for example in the right middle lobe image 24 and left upper lobe/lingula image 97, series 4. No focal consolidation or pleural effusion. Mild bibasilar subsegmental atelectasis. LIVER, GALLBLADDER, AND BILIARY TREE: The liver is normal in size, morphology and attenuation. There are multiple simple appearing cysts as well as several additional too small to characterize hypodensities scattered in the liver, the latter statistically favoring to represent cysts or hemangiomas. No evidence of calcified gallbladder calculi. No significant pericholecystic inflammatory changes. PANCREAS: Unremarkable. SPLEEN: Unremarkable. ADRENAL GLANDS: Less than 2 cm nodularities in the left adrenal gland measuring less than 10 Hounsfield units most suggestive of adenomas, for which no imaging follow-up is recommended. KIDNEYS AND URETERS: No nephrolithiasis or hydronephrosis. Simple appearing partially exophytic cortical cyst in the upper left kidney measuring 1.9 cm, for which no imaging follow-up is recommended. A few additional too small to characterize left-sided peripelvic hypodensities, favoring to represent simple cysts for which no imaging follow-up is recommended. No perinephric fat stranding. BLADDER: Mild diffuse urinary bladder wall thickening. GASTROINTESTINAL TRACT: The stomach and the small bowel are nondilated. Normal appendix. Mild colonic diverticulosis without significant pericolonic inflammatory changes. No evidence of bowel obstruction. ABDOMINAL WALL: No significant hernia is appreciated. LYMPH NODES: Scattered slightly enlarged mesenteric lymph nodes are seen more noticeable in the left upper abdomen measuring up to 1.1 cm in short axis. Mildly prominent right lower periesophageal lymph node measuring 0.9 cm. VASCULAR: Normal caliber abdominal aorta. PELVIC VISCERA: There is a 1.8 cm low-density observation in the prostate base protruding into the bladder (3:89). The prostate gland is enlarged. There is faint stranding around the bladder, prostate and seminal vesicles. OSSEOUS STRUCTURES: No acute or aggressive appearing osseous findings. Degenerative changes of the spine. IMPRESSION: 1. There is trace stranding around the urinary bladder, prostate and seminal vesicles with a 1.8 cm low density observation in the prostatic base; the latter could represent a prostatic abscess or cyst, and the fat stranding could be related with an urinary or prostatic infection. Recommend clinical correlation. 2. There is mild diffuse urinary bladder wall thickening which could be seen in the context of outlet obstruction in view of an enlarged prostate versus cystitis. Correlate clinically. Other findings noted above in body of dictation Assessment and Plan (1) Prostatitis: Status: Acute (2) Acute UTI: Status: Acute (3) Complicated UTI (urinary tract infection): Status: Acute (4) BPH loc w urin obs/LUTS: Status: Acute (5) Prostate abscess: Status: Acute Plan Recommend flomax outpatient ABX bactrim DS bid for 21 days fu as outpatient Procedures Date of Service Date of Service: 03/07/24
[2024-03-07] MEDS: Ascorbic Acid 500 MG TABLET PO (09:04)
[2024-03-07] MEDS: 0.9 % Sodium Chloride Flush 3 ML SYRINGE IVFLUSH (09:04)
[2024-03-07 09:05] VITALS: BP 129/80
[2024-03-07] MEDS: Doxazosin Mesylate 2 MG TABLET 8 MG PO (09:05)
--- NOTE | 2024-03-07 12:56 | PM.DS ---
DS: Providers Provider Date of Service: 03/07/24 Date of admission: 03/05/24 14:53 Date of discharge: 03/07/24 Primary care physician: Phan Rizo MD Consults: 03/05/24 14:52 Consult to Urology Routine Consulting Provider: Asa Moralez Reason for consultation: prostatitis/prostatic abscess DS: Diagnosis Discharge Diagnosis (1) Prostatitis: Status: Acute (2) Prostate abscess: Status: Acute DS: Summary Hospital Course Hospital Course: 58-year-old male without any significant past medical history presented to the ED earlier today for evaluation of lightheadedness, increased urinary frequency with weak urinary stream, and fevers up to 100.8 with associated chills that started last night. He has also had decreased appetite as well as a thick white penile discharge noted last night. Denies any abdominal pain, nausea, vomiting, dysuria, hematuria, diarrhea, cough, shortness of breath, chest pain. No syncope. is present in room during time of exam but both report strict monogamy. No history of STI. Since arrival, has been febrile to 100.6, tachycardic to 122, vital signs otherwise stable. He has a leukocytosis of 12.1 with 9% bandemia. Renal function and electrolyte levels normal. Lactic acid initially 1.6 with repeat 0.9. Total bilirubin 1.4, hepatic function otherwise within normal limits. CRP 5.83. ESR 6. Urinalysis significant for 3+ leukocytes, positive nitrites, trace blood, positive urinary sediment, 1+ bacteria. Gonorrhea and chlamydia PCR both pending. CT abdomen/pelvis shows trace stranding around the urinary bladder, prostate, and seminal vesicles with a 1.8 cm low-density observed in the prostatic base possibly representing prostatic abscess or cyst. There is also diffuse urinary bladder wall thickening and scattered mildly enlarged mesenteric lymph nodes. In the ED, has been given IV ceftriaxone, Levaquin, Tylenol, and 2 L IV NS. Hospital Course Admitted to general medical floor and started on ceftriaxone [address] scan demonstrated some changes consistent with acute prostatitis questionable cyst versus abscess. Was seen in consultation by Urology who recommended 21 days of Bactrim ds and outpatient follow-up. Urine did grow E coli sensitive to Bactrim; blood culture x1 grew same. Repeat blood cultures have been drawn and will be followed up. At this point in time he is medically acceptable for discharge home to complete a 21 day course of Bactrim and follow up with his PCP Time Attestation Discharge Coordination Time (in mins): 35 Quality: Safe Use of Opioids Does Pt have an Active Cancer Diagnosis on the Problem List?: No Quality: Stroke Does the patient have a stroke diagnosis?: No Physical Exam Vital Signs: Vital Signs: Last Vital Signs Temp 96.9 F 03/07/24 07:24 Pulse 78 03/07/24 07:24 Resp 16 03/07/24 07:24 BP 129/80 03/07/24 09:05 Pulse Ox 96 03/07/24 07:24 O2 Del Method Room Air 03/07/24 07:24 BMI result Body Mass Index 30.9 Const: Other: Awake alert oriented x3 no acute distress Resp: Other: Clear to auscultation bilaterally no rales rhonchi or wheezes Cardio: Other: No S4; positive S1-S2; no S3 murmurs rubs or gallops Extrem: Other: No edema bilaterally DS: Data Data Completed and Pending Labs on day of discharge: Laboratory Results - last 24 hr 03/07/24 06:03 WBC 8.6 RBC 4.07 L Hgb 12.8 L Hct 37.7 L MCV 92.6 MCH 31.4 MCHC 34.0 RDW 12.3 Plt Count 76 L MPV 11.5 Absolute Nucleated RBC 0.000 Nucleated RBC % (auto) 0.0 Sodium 139 Potassium 4.1 Chloride 109 H Carbon Dioxide 24 Anion Gap 10 L BUN 10 Creatinine 0.81 Estim Creat Clear Calc 129.1 Estimated GFR > 60 Random Glucose 127 H Calcium 8.9 Preliminary micro results at discharge 03/05/24 12:29 Blood Culture - Preliminary Blood - Venous Gram negative keagan 03/05/24 12:15 Blood Culture - Preliminary Blood - Venous No growth after 24 hours. Discharge Plan Discharge Anticipated Discharge Date/Time: 03/07/24 12:53 Patient Disposition: Home, Self-Care Discharge Diagnosis: Prostatitis Referrals: Phan Rizo MD [Primary Care Provider] - 1 Week Discharge Medications: New doxazosin 2 mg Tablet 8 mg PO DAILY Qty: 30 3RF Protocol: Hold for SBP< HOLD for SBP < : 90 sulfamethoxazole-trimethoprim [Bactrim DS] 800-160 mg tablet 1 tab PO BID Qty: 42 0RF Continued sildenafil 100 mg tablet 100 mg PO DAILY PRN (Reason: intercourse) ascorbic acid (vitamin C) [Vitamin C] 500 mg Tablet 500 mg PO DAILY biotin 5 mg Tablet 5 mg PO DAILY omega [id number]-fish oil [Fish Oil] 1,000 mg (120 mg-180 mg) Capsule 1 cap PO DAILY Discharge Orders: Discharge Order (Routine); Ordered 03/07/24 Ordered By: Errol House Diet: Advance to usual diet Activity on Discharge: As tolerated Stand Alone Forms: Patient Portal Discharge page Print Language: Citizen Of [place] Care Plan Goals: Complete course of Bactrim DS 1 twice a day for 3 weeks Health Concerns: Follow up with your PCP in 2 weeks. They can arrange follow-up with Urology Plan of Treatment: As per PCP Assessment: See discharge summary
--- NOTE | 2024-03-07 13:16 | MHC.CM.PN ---
PT WILL DC HOME TODAY WITH NO SERVICES VIA PRIVATE TRANSPORT
[2024-03-07 13:21] VITALS: BP 132/75
== END 2024-03-07 13:45 | disposition home or self-care (01) | DRG 872 ==
LOC: HO.ED 14:24 → HO.EDOVER 15:05 → HO.S3 19:29
PROVIDERS: Hospitalist; Physician Assistant; Admitting Provider Physician Assistant; Emergency Provider Emergency Medicine; PCP Internal Medicine; Visit Provider Hospitalist
DX: A41.9 Sepsis, unspecified organism (principal); N41.0 Acute prostatitis; N41.2 Abscess of prostate; N39.0 Urinary tract infection, site not specified; B96.20 Unspecified Escherichia coli [E. coli] as the cause of diseases classified elsewhere; D69.59 Other secondary thrombocytopenia; Z20.822 Contact with and (suspected) exposure to COVID-19; Z79.899 Other long term (current) drug therapy
CPT/HCPCS: 0241U; 0353U; 36415; 74176; 80048; 80053; 81001; 82550; 83605; 83690; 83735; 84484; 85007; 85025; 85027; 85652; 86140; 87040; 87077; 87086; 87088; 87186; 87205; 93005; 99285; J0696; J1956; J2405

== ENCOUNTER → 2024-03-05 11:56 | Outpatient (BNV) | payer OTHER, SELFPAY | PROVIDERS: Emergency Provider Emergency Medicine; PCP Internal Medicine; Visit Provider Internal Medicine Cardiovascular Disease | DX: R42 Dizziness and giddiness (principal); R00.0 Tachycardia, unspecified | CPT/HCPCS: 93010 ==

== ENCOUNTER → 2024-03-05 14:53 | Outpatient (BNV) | payer OTHER, SELFPAY | PROVIDERS: Admitting Provider Physician Assistant; Emergency Provider Emergency Medicine; PCP Internal Medicine; Visit Provider Urology | DX: N41.9 Inflammatory disease of prostate, unspecified (principal); N39.0 Urinary tract infection, site not specified; N40.1 Benign prostatic hyperplasia with lower urinary tract symptoms; N41.2 Abscess of prostate | CPT/HCPCS: 99222 ==

== ENCOUNTER → 2024-03-05 14:53 | Outpatient (BNV) | payer OTHER, SELFPAY | PROVIDERS: Admitting Provider Physician Assistant; Emergency Provider Emergency Medicine; PCP Internal Medicine; Visit Provider Physician Assistant | DX: N41.9 Inflammatory disease of prostate, unspecified (principal); N41.2 Abscess of prostate | CPT/HCPCS: 99223; 99233; 99239 ==